=== PATIENT | male | born 1995 | race Caucasian/White ===

== ENCOUNTER 2017-02-20 12:54 | Day surgery (SDC) | payer BC ==
[2017-02-17 14:00] LABS: HEMATOCRIT 42.5 % (40.0-51.0); HEMOGLOBIN 15.7 g/dL (13.6-17.8)
--- NOTE | ~2017-02-20 | OP ---
Record Of Operation [facility] [address] [place]. [address] NAME: INES CHADWICK : 89 STATUS : [facility]#: [id number] AGE: 21 ADM/REG DATE : 02/20/17 MR#: [id number] REPORT SERV DATE: 02/21/17 DICTATED BY: RODDY PAYNE DATE: 02/20/17 REPORT STATUS : Draft TRANSCRIBED BY: MODL DATE: 02/20/17 DATE OF PROCEDURE: 02/20/2017 PREOPERATIVE DIAGNOSIS: Acute right maxillary sinusitis with deviated nasal septum and bilateral inferior turbinate hypertrophy. POSTOPERATIVE DIAGNOSIS: Acute right maxillary sinusitis with deviated nasal septum and bilateral inferior turbinate hypertrophy. PROCEDURE: Right endoscopic maxillary antrostomy with septoplasty, right inferior turbinate reduction, and left inferior turbinate outfracture. SURGEON: Roddy Payne M.D. ANESTHESIA: General endotracheal. ESTIMATED BLOOD LOSS: 100 mL. INTRAOPERATIVE FLUIDS: 1500 mL crystalloid. INTRAOPERATIVE FINDINGS: Bilateral deviated nasal septum, greater to the left than the right. There was, however, a high deflection of the nasal septum to the right side, limiting access to the right middle meatus, necessitating septoplasty for the right endoscopic maxillary antrostomy. OPERATIVE PROCEDURE: The patient was identified in the holding room, transferred to the operating room. In the operating room, patient was placed on the operating room table in supine position. Following induction of anesthesia, the patient was intubated without difficulty. Afrin-soaked pledgets were placed to the nose, bilaterally. The septum was injected with 1% lidocaine with 1:100,000 epinephrine, bilaterally. The patient was prepped and draped in preparation for his nasal surgery. A rigid nasal endoscopy was performed which revealed the above findings. The patient did have a previously created left maxillary antrostomy which was widely patent with no inflammation or drainage identified. A septoplasty was performed to improve access to the right middle meatus. A [place] incision was created in the left side of the nose. A mucoperichondrial flap was developed. There was difficulty in elevating the flap due to the patient's previous septoplasty with associated scarring. I was, however, able to elevate the mucoperichondrial flap intact. There was an incision along the caudal edge of the nasal septum which had been performed at the time of his previous septoplasty. This incision was utilized to elevate the mucoperichondrial flap in the right side of the nose. Once again, the mucoperichondrial flap on the right side was elevated completely intact. On the right side, the dissection was carried onto the bony nasal septum. There was sufficient deformity of the nasal septum to the left side that I was unable to elevate the mucoperiosteal flap at this point. The quadrangular cartilage was divided from the bony nasal septum, leaving a strong dorsal attachment. The bony deformity of the nasal septum was removed in a piecemeal fashion. This bone was removed and exposure was improved, the mucoperiosteal flap was then developed Record Of Operation [place] [id number] [facility] [place]. [address] NAME: INES CHADWICK : 89 STATUS : [facility]#: [id number] AGE: 21 ADM/REG DATE : 02/20/17 MR#: [id number] REPORT SERV DATE: 02/21/17 DICTATED BY: RODDY PAYNE DATE: 02/20/17 REPORT STATUS : Draft TRANSCRIBED BY: MCKENZIE DATE: 02/20/17 further posterior on the nasal septum. There was a persistent spur of bone along the floor of the nose, posteriorly, creating a residual nasal septal deformity in this area which was also removed. Following removal of this bone, the mucosa was replaced and the septum was noted to be in the midline. In further dissection, there was a rent created in the left mucoperichondrial flap; however, once again, the flap on the right side remained completely intact. The [place] incision was closed with interrupted 4-0 chromic suture. A quilting stitch was placed. With the septum returned to the midline, a right endoscopic maxillary antrostomy was performed. The uncinate process was injected with 1% lidocaine with 1:100,000 epinephrine. The uncinate process was removed. Additional bone and soft tissue was removed with the use of the sinus shaving instrumentation. This did allow for identification of the natural maxillary sinus ostium, inferiorly. The ostium was enlarged removing tissue posteriorly and inferiorly. There was fluid within the right maxillary sinus which was collected in [place] trap and sent for routine culture. Additional bone and soft tissue was removed to create a widely patent opening into the right maxillary sinus. Examination of the sinus with the 30-degree scope revealed no residual drainage or debris within the base of the sinus. There was bilateral inferior turbinate hypertrophy, significantly greater on the right side than the left. A submucous resection of the inferior turbinate tissue was then performed on the right side. The remaining inferior turbinate tissue was outfractured. There was, however, a persistent prominence of the leading edge of the inferior turbinate which could not be improved with further outfracture. With concern for persistent nasal obstruction in this area, a conservative resection of the mucosa and submucosa was performed with the sinus shaving instrumentation. A simple inferior turbinate outfracture was performed on the left side. At the end of the operative procedure, there was no significant bleeding. Rolled Gel-Foam was placed between the middle turbinate and lateral nasal wall in the right side. Coats splints were applied to the nose. The patient was subsequently awakened from anesthesia, extubated in the operative room, transported to recovery room in good condition. The patient tolerated the procedure well. There were no apparent complications. Specimens included nasal septal bone and cartilage with tissue from the right maxillary sinus and aspirate of the right maxillary sinus contents for routine culture. KENDRA/MCKENZIE Roddy Payne M.D. / [id number] CC: Earnest Wagner M.D.
[~2017-02-20 12:54] MED LIST: VYVANSE30 MG PO
== END 2017-02-20 21:53 | disposition home or self-care (01) ==
LOC: SDC 12:54
PROVIDERS: Otolaryngology
PROC: 099Q4ZZ Drainage of Right Maxillary Sinus, Percutaneous Endoscopic Approach (ICD-10-PCS; principal; 2017-02-20 14:30)
PROC: 09BL8ZZ Excision of Nasal Turbinate, Via Natural or Artificial Opening Endoscopic (ICD-10-PCS; 2017-02-20 14:30)
DX: J32.0 Chronic maxillary sinusitis (principal); J34.2 Deviated nasal septum; J34.3 Hypertrophy of nasal turbinates; F98.8 Other specified behavioral and emotional disorders with onset usually occurring in childhood and adolescence; Z98.890 Other specified postprocedural states; Z90.89 Acquired absence of other organs; Z79.899 Other long term (current) drug therapy
CPT/HCPCS: 85014; 85018; 88300; 88305; A9270-GY; J0295; J2250; J2270; J2405; J2710; J3010